=== PATIENT | female | born 1950 | race Caucasian/White ===

== ENCOUNTER → 2017-01-02 | Outpatient (CLI) | payer OTHER ==
[~2017-01-02] MED LIST: ASPCH81X PO; CHOL100010 PO; GLIP-197 PO; LEVO100T7 PO; METO-217 PO; MULT-602 PO; OMEP40CA41 PO; ONDA4TAB7 SL; PLQ200 PO; PRAV40TA2 PO; PROT5TAB PO; RANI300T PO; SOLI10TA2 PO; TURM1CAP PO; VERA120T5 PO
--- NOTE | 2017-01-02 12:28 | DIAGNOSTIC IMAGING REPORT ---
SOFT TISS HEAD/NECK-THYROID CLINICAL HISTORY: 66 years-old Female presenting with multinodular goiter. TECHNIQUE: Real-time grayscale and color and spectral Doppler ultrasound imaging of the thyroid and base of the neck was performed. COMPARISON: 06/28/2015. FINDINGS: Right lobe: Normal echogenicity and echotexture. The right lobe of the thyroid measures 5.5 x 0.8 x 1.0 cm. No nodules. No parenchymal hyperemia. Left lobe: Normal echogenicity and echotexture. The left lobe of the thyroid measures 3.8 x 0.9 x 1.1 cm. No nodules. No parenchymal hyperemia. Isthmus: The isthmus measures 3 mm in thickness. No nodules. IMPRESSION: Normal thyroid ultrasound. Electronically signed by: Je Cardona M.D. 01/02/2017 12:26 PM Dictated Date/Time: 01/02/2017 12:25 PM
== END | disposition home or self-care (01) ==
LOC: C.ULTR 10:32
DX: E04.2 Nontoxic multinodular goiter (principal)